=== PATIENT | male | born 1975 | race Two or more races ===

== ENCOUNTER 2022-08-18 16:36 | Emergency (ER) | payer SELFPAY ==
[2022-08-18] MEDS ORDERED: Ondansetron 4 MG/2 ML SDV IVPUSH ONE (17:29)
[2022-08-18] MEDS ORDERED: Sodium Chloride 0.9% 1,000 ML IV SCH (17:30)
[2022-08-18] MEDS ORDERED: HYDROmorphone 1 MG/ML Syringe IVPUSH ONE (17:57)
[2022-08-18 18:19] LABS: ESTIMATED GFR 84 mL/min (>60)
[2022-08-18] MEDS ORDERED: Iopamidol 612 MG/ML 100 ML Bottle IVPUSH ONE (18:23)
[2022-08-18] MEDS ORDERED: Sodium Chloride 0.9% 10 ML Syringe FLUSH PRN (18:23)
[2022-08-18] MEDS ORDERED: Sodium Chloride 0.9% 1,000 ML IV ONE (19:37)
== END 2022-08-18 21:42 | disposition home or self-care (01) ==
LOC: JD.ED 16:36
DX: K52.9 Noninfective gastroenteritis and colitis, unspecified (principal); Z79.899 Other long term (current) drug therapy
CPT/HCPCS: 36415; 74177; 80053; 81001; 83690; 84484; 85025; 86140; 93005; 96361; 96374; 96375; 99284; J1170; J2405; J3490; J7030; Q9967